=== PATIENT | female | born 1980 | race Caucasian/White ===

== ENCOUNTER → 2019-10-17 | Outpatient (CLI) | payer OTHER ==
--- NOTE | 2019-10-17 21:08 | US ---
EXAM DESCRIPTION: Venous,Lower Extremity RT: ULTRASOUND. CLINICAL HISTORY: pain in thigh COMPARISON: None Available. TECHNIQUE: Mullen-scale and doppler sonographic evaluation of the deep venous system of the right lower extremity. FINDINGS: Doppler evaluation shows normal color flow and normal phasicity and augmentation of the right common femoral vein, femoral vein, popliteal vein, greater saphenous vein, junction with the CFV. Also normal color flow and normal phasicity and augmentation of the peroneal, and posterior tibial vein. The right lower extremity deep veins were completely compressible; normal occlusion with transducer pressure. Mullen-scale survey showed no echogenic thrombus within these veins. IMPRESSION: 1. Duplex ultrasound evaluation of the right lower extremity deep venous system showing no evidence of thrombosis. Electronically signed by: Jovon Acosta MD 10/17/2019 9:07 PM CDT
== END ==
LOC: US 11:47
PROVIDERS: ATTEND Nurse Practitioner Family
DX: M79.651 Pain in right thigh (principal)

== ENCOUNTER → 2019-11-05 | Outpatient (CLI) | payer OTHER | LOC: LAB.O 08:27 | DX: E34.9 Endocrine disorder, unspecified (principal); N95.1 Menopausal and female climacteric states; R94.6 Abnormal results of thyroid function studies; E03.9 Hypothyroidism, unspecified ==